=== PATIENT | male | born 1990 | race Caucasian/White ===

== ENCOUNTER 2020-05-11 16:11 | Emergency (ER) | payer OTHER ==
[~2020-05-11] VITALS: Ht 182.9 cm; Wt 104.3 kg
[~2020-05-11 16:11] MED LIST: CLEOCIN HCL150 MG PO; IBUPROFEN 600600 M1 PO
[2020-05-11 16:44] LABS: HEMATOCRIT 43.7 % (42.0-52.0); HEMOGLOBIN 15.2 gm/dL (14.0-18.0); MCH 30.3 pg (26.0-34.0); MCHC 34.8 g/dL (28.0-37.0); MCV 87.1 fL (80.0-100.0); RBC 5.01 mil/uL (4.50-6.00); RDW 12.9 % (10.5-14.5); WBC 4.6 thou/uL (4.0-11.0)
[2020-05-11 16:54] LABS: CALCIUM 9.3 mg/dL (8.5-10.1); CREATININE 1.1 mg/dL (0.7-1.3)
[2020-05-11 17:00] LABS: ALBUMIN 4.2 g/dL (3.4-5.0); DIRECT BILIRUBIN 0.2 mg/dL (<0.1-0.2); TOTAL BILIRUBIN 0.7 mg/dL (0.2-1.0); TOTAL PROTEIN 8.1 g/dL (6.4-8.2)
[2020-05-11 17:45] VITALS: BP 132/74
== END 2020-05-11 17:45 | disposition home or self-care (01) ==
LOC: ER 16:11
PROVIDERS: Emergency Medicine
DX: U07.1 COVID-19 (principal); R74.01 Elevation of levels of liver transaminase levels; R10.13 Epigastric pain; R11.2 Nausea with vomiting, unspecified; R19.7 Diarrhea, unspecified; F17.210 Nicotine dependence, cigarettes, uncomplicated; Z20.828 Contact with and (suspected) exposure to other viral communicable diseases